=== PATIENT | female | born 1990 | race Caucasian/White ===

== ENCOUNTER 2017-05-07 03:22 | Emergency (ER) | payer SELFPAY ==
[2017-05-07] MEDS ORDERED: methylPREDNISolone Acetate 40 mg/ml Vial ONE (03:58)
[2017-05-07] MEDS ORDERED: Azithromycin 250 MG TAB ONE (04:11)
== END 2017-05-07 04:15 | disposition home or self-care (01) ==
LOC: NAV ERS 03:22
DX: J20.9 Acute bronchitis, unspecified (principal); J01.00 Acute maxillary sinusitis, unspecified; J45.909 Unspecified asthma, uncomplicated; F41.9 Anxiety disorder, unspecified; F98.8 Other specified behavioral and emotional disorders with onset usually occurring in childhood and adolescence; F17.210 Nicotine dependence, cigarettes, uncomplicated
CPT/HCPCS: 96372; J1030; J7620

== ENCOUNTER 2017-05-08 09:26 | Emergency (ER) | payer SELFPAY ==
[2017-05-08] MEDS ORDERED: Sodium Chloride 0.9% 1,000 ML ONE (09:48)
[2017-05-08] MEDS ORDERED: Ketorolac Tromethamine 30 MG/ML VIAL ONE (09:48)
[2017-05-08 09:55] LABS: #Basophils 0.1 thou/uL (0.0-0.2); #Eosinphils 0.5 thou/uL (0.0-0.7); #Monocytes 0.9 thou/uL (0.11-0.59); #Neutrophils 10.6 thou/uL (1.40-6.50); %Basophils 0.7 % (0.0-1.0); %Eosinophils 3.4 % (0.0-10.0); %Monocytes 6.2 % (0.0-10.0); %Neutrophils 75.8 % (42.0-75.0); Hemoglobin 15.8 g/dL (12.0-16.0); Mean Corpuscular HGB CONC 33.5 g/dL (32.0-36.0); Mean Corpuscular Hemoglobin 30.9 pg (27.0-31.0); Mean Corpuscular Volume 92.3 fl (81.0-99.0); Platelet Count 228 thou/uL (130-400); RBC Distribution Width 11.8 % (11.5-14.5); Red Blood Cell (RBC) Count 5.11 mill/uL (4.20-5.40)
[2017-05-08 10:08] LABS: ALT (SGPT) 10 U/L (8-55); AST (SGOT) 15 U/L (5-34); Alkaline Phosphatase 85 U/L (40-150); Anion Gap 15 mmol/L (10-20); BUN (Urea Nitrogen) 10 mg/dL (7.0-18.7); Bilirubin, Total 0.7 mg/dL (0.2-1.2); Calc. Creatinine Clearance 0 mL/min (70-130); Calcium 9.2 mg/dL (7.8-10.44); Carbon Dioxide 23 mmol/L (22-29); Chloride 103 mmol/L (98-107); Estimated GFR-MDRD 89; Globulin 3.7 g/dL (2.4-3.5); Glucose 98 mg/dL (70-105); Potassium 4.3 mmol/L (3.5-5.1); Protein, Total 7.7 g/dL (6.0-8.3); Sodium 137 mmol/L (136-145)
--- NOTE | 2017-05-08 10:17 | RAD ---
TWO VIEWS OF THE CHEST: DATE: 05/08/17. COMPARISON: 06/13/14. HISTORY: Unproductive cough and wheezing. FINDINGS: Subtle increased linear densities noted in the lung bases, particularly on the right. There is no p neumothorax seen. There is no lobar consolidation or pleural fluid. Heart and mediastinal contours unremarkable. IMPRESSION: Mild increased linear density noted in the lung bases, especially on the right. In the proper clini burak setting, this could represent an early infectious infiltrate within the right lung base. Follow up imaging following treatment advised as clinically indicated. POS: [facility]
== END 2017-05-08 11:08 | disposition home or self-care (01) ==
LOC: NAV ERS 09:26
DX: J18.9 Pneumonia, unspecified organism (principal); E03.9 Hypothyroidism, unspecified; J45.909 Unspecified asthma, uncomplicated; F41.9 Anxiety disorder, unspecified; F17.210 Nicotine dependence, cigarettes, uncomplicated
CPT/HCPCS: 71020; 80053; 85025; 94640; 96361; 96374; J1885; J7050; J7620

== ENCOUNTER 2017-07-28 12:27 | Emergency (ER) | payer SELFPAY ==
[2017-07-28] MEDS ORDERED: Acetaminophen 500 MG TAB ONE (12:37)
== END 2017-07-28 13:27 | disposition home or self-care (01) ==
LOC: NAV ERS 12:27
DX: J10.1 Influenza due to other identified influenza virus with other respiratory manifestations (principal); J20.9 Acute bronchitis, unspecified; E03.9 Hypothyroidism, unspecified; J45.909 Unspecified asthma, uncomplicated; F41.9 Anxiety disorder, unspecified; F17.210 Nicotine dependence, cigarettes, uncomplicated
CPT/HCPCS: 87804; 94640; J7620

== ENCOUNTER 2018-01-24 10:44 | Emergency (ER) | payer SELFPAY ==
[2018-01-24 11:50] LABS: #Basophils 0.1 thou/uL (0.0-0.2); #Eosinphils 0.4 thou/uL (0.0-0.7); #Lymphocytes 2.9 thou/uL (1.20-3.40); #Monocytes 0.6 thou/uL (0.11-0.59); #Neutrophils 5.7 thou/uL (1.40-6.50); %Basophils 1.3 % (0.0-1.0); %Lymphocytes 30.2 % (21.0-51.0); %Neutrophils 58.5 % (42.0-75.0); Hemoglobin 14.3 g/dL (12.0-16.0); Mean Corpuscular HGB CONC 32.6 g/dL (32.0-36.0); Mean Corpuscular Hemoglobin 28.9 pg (27.0-31.0); Mean Corpuscular Volume 88.6 fL (78.0-98.0); Mean Platelet Volume 8.2 fL (7.4-10.4); Platelet Count 238 thou/uL (130-400); RBC Distribution Width 11.6 % (11.5-14.5); Red Blood Cell (RBC) Count 4.94 mill/uL (4.20-5.40); White Blood Cell (WBC) Count 9.7 thou/uL (4.8-10.8)
[2018-01-24 12:00] LABS: ALT (SGPT) 15 U/L (8-55); AST (SGOT) 15 U/L (5-34); Alkaline Phosphatase 78 U/L (40-150); Anion Gap 13 mmol/L (10-20); BUN (Urea Nitrogen) 12 mg/dL (7.0-18.7); Bilirubin, Total 0.4 mg/dL (0.2-1.2); CK (CPK) 85 U/L (29-168); Calc. Creatinine Clearance 0 mL/min (70-130); Calcium 9.3 mg/dL (7.8-10.44); Carbon Dioxide 24 mmol/L (22-29); Chloride 104 mmol/L (98-107); Estimated GFR-MDRD Greater than 90; Globulin 3.1 g/dL (2.4-3.5); Glucose 84 mg/dL (70-105); Potassium 3.7 mmol/L (3.5-5.1); Protein, Total 7.1 g/dL (6.0-8.3); Sodium 137 mmol/L (136-145)
[2018-01-24 12:06] LABS: Bilirubin Negative (Negative); Blood, Urine Negative (Negative); Clarity Clear (Clear); Glucose, Urine (Dipstick) Negative (Negative); Leukocyte Negative (Negative); Nitrite Negative (Negative); Pregnancy Test - Urine (BHCG) Negative (Negative); Pregu Control Background? CLEAR/WHITE (CLR/WHITE); Pregu Control Bar Appear? YES (CONTROL BAR); Protein, Urine (Dipstick) Negative (Neg-Trace); Specific Gravity 1.015 (1.002-1.036); Specific Gravity, Urine 1.015 (1.005-1.030); Urobilinogen 0.2 mg/dL (0.2-1.0)
[2018-01-24] MEDS ORDERED: Sodium Chloride 0.9% 1,000 ML ONE (12:30)
--- NOTE | 2018-01-24 13:18 | RAD ---
CHEST 2 VIEWS: Date: 01/24/18 HISTORY: Cough and vertigo. COMPARISON: 05/08/17. FINDINGS: Heart size and mediastinum are within normal limits. Lungs are clear of infiltrates. No significant b kathryn findings. IMPRESSION: No active intrathoracic disease. POS: [facility]
== END 2018-01-24 14:09 | disposition home or self-care (01) ==
LOC: NAV ERS 10:44
DX: R05 Cough (principal); R51 Headache; E03.9 Hypothyroidism, unspecified; J45.909 Unspecified asthma, uncomplicated; F41.9 Anxiety disorder, unspecified; F17.210 Nicotine dependence, cigarettes, uncomplicated; X30.XXXA Exposure to excessive natural heat, initial encounter
CPT/HCPCS: 71046; 80053; 81003; 81025; 82550; 85025; 93005; 96360; J7050

== ENCOUNTER 2018-09-26 09:02 | Emergency (ER) | payer SELFPAY ==
[2018-09-26 09:40] LABS: Pregnancy Test - Urine (BHCG) Negative (Negative); Pregu Control Background? CLEAR/WHITE (CLR/WHITE); Pregu Control Bar Appear? YES (CONTROL BAR); Specific Gravity 1.025 (1.002-1.036)
--- NOTE | 2018-09-26 10:16 | RAD ---
FRadiograph right knee 4 views: 09/26/2018 HISTORY: 27-year-old female with nontraumatic sudden onset right knee pain FINDINGS: Small to moderate-sized osteophytes at inferior aspect of patellofemoral compartment. Joint spaces ar e maintained in the medial and lateral compartments, without erosions or osteophytes. Bone mineraliza tion is normal. No periostitis, permeative lesion, osteolytic lesion, osteoblastic lesion, or fractur e. Broad region of mildly increased attenuation in the suprapatellar region anterior to the distal fe moral metadiaphysis could represent joint effusion. No fracture. IMPRESSION: 1. No fracture. 2. Probable joint effusion. 3. Mild to moderate osteoarthrosis isolated to the inferior aspect of the patellofemoral compartment.
[2018-09-26] MEDS ORDERED: Ketorolac Tromethamine 60 MG/2 ML VIAL ONE (10:49)
== END 2018-09-26 11:06 | disposition home or self-care (01) ==
LOC: NAV ERS 09:02
DX: M25.561 Pain in right knee (principal); E03.9 Hypothyroidism, unspecified; J45.909 Unspecified asthma, uncomplicated; F41.9 Anxiety disorder, unspecified; F98.8 Other specified behavioral and emotional disorders with onset usually occurring in childhood and adolescence; F17.210 Nicotine dependence, cigarettes, uncomplicated
CPT/HCPCS: 81025; 96372; J1885